=== PATIENT | female | born 1940 | race Caucasian/White ===

== ENCOUNTER → 2018-03-19 | Outpatient (CLI) | payer MEDICARE ==
[~2018-03-19] MED LIST: GADOBUTROL 10 MMOL/10 ML PFS ONE
== END | disposition home or self-care (01) ==
LOC: CFH 09:20
PROVIDERS: ATTEND Registered Nurse
DX: G62.9 Polyneuropathy, unspecified (principal); S00.83XD Contusion of other part of head, subsequent encounter; M25.562 Pain in left knee; X58.XXXD Exposure to other specified factors, subsequent encounter
CPT/HCPCS: 70553; A9585

== ENCOUNTER 2019-06-11 15:42 | Emergency (ER) | payer MEDICARE ==
[~2019-06-11] VITALS: Ht 152.4 cm; Wt 83.5 kg
--- NOTE | 2019-06-11 16:10 | NUR ---
PT BIB BY ELIZABETH. 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 SHE WAS ON THE GROUND AND COULD NOT GET UP. SHE WAS LAYING THE GROUND FOR 14 HORUS BEFORE BEING DISCOVERED. WHEN ELIZABETH GOT THERE THEY SAID SHE WAS "WEAK ON HER FEET". PT IS USUALLY INDEPENDENT. CALL LIGHT WITHIN REACH
[2019-06-11 16:49] LABS: BASOPHILS # (AUTO) 0.03 x10^3/uL (0-0.1); BASOPHILS % (AUTO) 0 % (0-1); EOSINOPHILS # (AUTO) 0.04 x10^3/uL (0-0.4); EOSINOPHILS % (AUTO) 1 % (1-7); LYMPHOCYTES # (AUTO) 0.93 x10^3/uL (1-3.4); LYMPHOCYTES % (AUTO) 11 % (22-44); MD NO; MEAN CORPUSCULAR HEMOGLOBIN 33.1 pg (27.0-34.8); MEAN CORPUSCULAR HGB CONC 34.5 g/dL (32.4-35.8); MEAN PLATELET VOLUME 7.2 fL (7.4-10.4); MONOCYTES # (AUTO) 0.94 x10^3/uL (0.2-0.8); MONOCYTES % (AUTO) 11 % (2-9); NEUTROPHILS # (AUTO) 6.57 x10^3/uL (1.8-6.8); NEUTROPHILS % (AUTO) 77 % (42-75); PLATELET COUNT 292 x10^3/uL (130-400); RED BLOOD COUNT 3.97 x10^6/uL (3.82-5.3); RED CELL DISTRIBUTION WIDTH 12.7 % (9.6-15.2)
[2019-06-11 16:56] VITALS: BP 158/75
[2019-06-11 16:56] LABS: ALBUMIN 3.4 g/dL (3.4-5.0); ANION GAP 10 mmol/L (5-15); CALCIUM 9.1 mg/dL (8.5-10.1); CHLORIDE 100 mmol/L (98-107); CREATININE 1.07 mg/dL (0.55-1.02)
--- NOTE | 2019-06-11 16:56 | NUR ---
PT RESTING IN [place]. FAMILY BEDSIDE. NO NEEDS AT THIS TIME
[2019-06-11 17:10] LABS: CREATINE KINASE, TOTAL 1307 U/L (26-192)
[2019-06-11] MEDS ORDERED: SODIUM CHLORIDE 0.9% 1,000ML IVBOLUS ONE (17:30)
[2019-06-11] MEDS ORDERED: SODIUM CHLORIDE FLUSH 10ML SYR IVF ONE (17:30)
--- NOTE | 2019-06-11 17:30 | NUR ---
PIV STARTED. PT MEDICATED PER EMAR. AWARE OF POC. NADN. VSS. DENIES NEEDS.
--- NOTE | 2019-06-11 19:34 | NUR ---
[employer] CALLED FOR CONSULT
--- NOTE | 2019-06-11 19:58 | NUR ---
[employer] HASNT RETURNED CALL. THE PTS FAMILY MEMBER IS CONCERNED ABOUT GETTING HER FROM HER VEHICLE TO THE PATIENTS APARTMENT WITHOUT ASSISTANCE.
--- NOTE | 2019-06-11 20:41 | NUR ---
PT IS REFUSING TO BE ADMITTED AND WANTS TO GO HOME. THIS RN AND MD HAD EXPRESSED OUR CONCERN FOR HER SAFETY UPON LEAVING THE HOSPITAL. FAMLY MEMBER (NIECE) SAYS THAT HER AND A HER FRIEND WILL ESCORT PT TO HER APARTMENT FROM [place]. FAMILY MEMBER ALSO STATED SHE WILL CHECK ON HER IN THE MORNING AND BESURE THAT SHE HAS [employer] ON HER PERSON.
[2019-06-13] MEDS ORDERED: calcium PO (15:07)
[2019-06-13] MEDS ORDERED: benazepril PO (15:07)
[2019-06-13] MEDS ORDERED: glipizide PO (15:07)
[2019-06-13] MEDS ORDERED: [UNRECOGNIZED DRUG - OTHER] PO (15:07)
[2019-06-13] MEDS ORDERED: vitamin d3 (15:07)
[2019-06-13] MEDS ORDERED: oxybutynin (15:07)
[2019-06-15] MEDS ORDERED: HYDR25TA6 PO (13:21)
[2019-06-15] MEDS ORDERED: BENA20TA5 PO (13:21)
[2019-06-15] MEDS ORDERED: LEVO75TA PO (13:21)
[2019-06-15] MEDS ORDERED: OXYB5TAB10 PO (13:21)
[2019-06-15] MEDS ORDERED: GLIP5TAB10 PO (13:21)
== END 2019-06-11 20:45 | disposition home or self-care (01) ==
LOC: ED 18:19
DX: E86.0 Dehydration (principal); M62.81 Muscle weakness (generalized); I10 Essential (primary) hypertension; E11.9 Type 2 diabetes mellitus without complications; E78.5 Hyperlipidemia, unspecified; W18.30XA Fall on same level, unspecified, initial encounter; Y93.89 Activity, other specified; Y92.89 Other specified places as the place of occurrence of the external cause; Y99.8 Other external cause status
CPT/HCPCS: 36415; 80048; 82040; 82550; 85025; 96360; 99283; J7030

== ENCOUNTER → 2020-02-18 | Outpatient (CLI) | payer MEDICARE ==
[~2020-02-18] MED LIST changes: +BENA20TA5 PO; +FURO20TA3 PO; -GADOBUTROL 10 MMOL/10 ML PFS ONE; +GLIP5TAB10 PO; +HYDR25TA6 PO; +LEVO75TA PO; +OXYB5TAB10 PO; +POTA20TA6 PO; +Sulfameth./Trimethoprim Ds PO; +[UNRECOGNIZED DRUG - OTHER] PO; +benazepril PO; +calcium PO; +glipizide PO; +oxybutynin; +vitamin d3
== END | disposition home or self-care (01) ==
LOC: CFH 13:06
PROVIDERS: ATTEND Psychiatry & Neurology Neurology
DX: G31.9 Degenerative disease of nervous system, unspecified (principal); G20 Parkinson's disease
CPT/HCPCS: 70450